=== PATIENT | female | born 1935 ===

== ENCOUNTER 2017-02-19 15:38 | Outpatient (CLI) | payer MEDICARE ==
--- NOTE | 2017-02-19 16:22 | XRay Report ---
BILATERAL KNEE THREE VIEWS EACH: 02/19/17 15:38:00 CLINICAL: Arthritis and pain. FINDINGS: Right: Osteoarthritis of the medial joint space with loss of the joint space and large medial osteophytes. Severe patellofemoral joint arthritis. No fracture or dislocation. No joint effusion. Normal soft tissues. Left: Osteoarthritis of the medial joint space with marked narrowing of the joint space and small medial osteophytes. Severe patellofemoral joint arthritis. No joint effusion. No fracture or dislocation. Normal soft tissues. 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
== END 2017-02-19 15:39 | disposition home or self-care (01) ==
LOC: SPVIMAG 15:38
PROVIDERS: ATTEND Internal Medicine
DX: M17.0 Bilateral primary osteoarthritis of knee (principal); M25.762 Osteophyte, left knee; M25.761 Osteophyte, right knee

== ENCOUNTER 2017-12-23 09:02 | Outpatient (CLI) | payer MEDICARE ==
--- NOTE | 2017-12-23 10:36 | XRay Report ---
XRAY RIGHT KNEE 4 THREE VIEWS: 12/23/17 CLINICAL: Status post total knee replacement. COMPARISON: 02/19/17 FINDINGS: Status post total joint replacement with normal appearance of the prosthesis. No apparent loosening. Quadriceps insertion enthesophyte. Patellar osteophytes have been removed since the last exam. No joint effusion.Mild anterior soft tissue swelling. No foreign body or soft tissue air. IMPRESSION: Status post total joint replacement. Quadriceps enthesopathy and mild soft tissue swelling.
== END 2017-12-23 09:03 | disposition home or self-care (01) ==
LOC: SPVIMAG 09:02
PROVIDERS: ATTEND Orthopaedic Surgery Sports Medicine
DX: Z47.1 Aftercare following joint replacement surgery (principal); M76.891 Other specified enthesopathies of right lower limb, excluding foot; Z96.651 Presence of right artificial knee joint